=== PATIENT | male | born 1965 | race Caucasian/White ===

== ENCOUNTER → 2020-09-07 | Outpatient (CLI) | payer MEDICARE ==
[~2020-09-07] MED LIST: ARIMIDEX1 MG PO; ASPIR-LOW81 MG PO; BENTYL 20MG TAB20 MG PO; CALCIUM CARBON500 MG PO; COREG 25MG TAB25 MG PO; DEPO-TESTO200 MG/1 M IM; ELIQUIS 5 MG TAB5 MG PO; ELIQUIS5 MG PO; FERROUS SULFAT325 M2 PO; FISH OIL 1,0001 EACH PO; FLONASE 0.05% N16 GM; GABAPENTIN300 MG PO; GOODY'S EX-STR1 EAC1 PO; KLONOPIN TAB 00.5 MG PO; LASIX40 MG PO; LIPITOR20 MG PO; LOSARTAN-HCTZ1 EAC1 PO; MECLIZINE HCL25 MG PO; NORVASC10 MG PO; NUVIGIL150 MG PO; PHENERGAN 12.12.5 M1 PO; PHENERGAN 25 MG25 M1 PO; PROZAC40 MG PO; SEROQUEL100 MG PO; SUBOXONE 8 MG-1 EACH SL; TESTOSTERO200 MG/1 M IM; VISTARIL25 MG PO; VITA-BEE WITH1 EACH PO; ZANAFLEX4 M1 PO; ZOFRAN ODT4 MG PO
== END ==
LOC: ECHO 13:00 → HEART 5 13:30
DX: R60.9 Edema, unspecified (principal); R06.02 Shortness of breath; I08.1 Rheumatic disorders of both mitral and tricuspid valves
CPT/HCPCS: ECHO; 93306; 93970

== ENCOUNTER 2020-09-22 03:33 | Emergency (ER) | payer MEDICARE ==
[2020-09-22 05:20] LABS: HEMOGLOBIN 17.6 gm/dl (14.0-17.5); RED BLOOD COUNT 5.36 M/UL (4.20-5.50); WHITE BLOOD COUNT 5.8 K/UL (4.5-11.0)
[2020-09-22 05:50] LABS: BUN/CREATININE RATIO 20 (0-10)
== END 2020-09-22 06:15 | disposition home or self-care (01) ==
LOC: ER1 03:33
PROVIDERS: Family Medicine
DX: R20.0 Anesthesia of skin (principal)
CPT/HCPCS: 71045; 80053; 82550; 82553; 83874; 84484; 85025; 93005; 99284

== ENCOUNTER → 2020-12-15 | Outpatient (CLI) | payer MEDICARE | LOC: RAD 12:12 | DX: M79.643 Pain in unspecified hand (principal); M19.042 Primary osteoarthritis, left hand; M19.041 Primary osteoarthritis, right hand | CPT/HCPCS: 73130 ==